=== PATIENT | male | born 1985 | race Caucasian/White ===

== ENCOUNTER 2019-02-14 14:42 | Emergency (ER) | payer MEDICARE, OTHER ==
[~2019-02-14] VITALS: Ht 195.6 cm; Wt 65.8 kg
== END 2019-02-14 15:55 | disposition left against medical advice (07) ==
LOC: ER 14:42
DX: Z53.21 Procedure and treatment not carried out due to patient leaving prior to being seen by health care provider (principal)
CPT/HCPCS: 99282

== ENCOUNTER 2019-02-17 15:26 | Emergency (ER) | payer MEDICARE, OTHER ==
[~2019-02-17] VITALS: Ht 195.6 cm; Wt 65.8 kg
[2019-02-17] MEDS ORDERED: Sudogest60 MG PO (17:32)
[2019-02-17] MEDS ORDERED: Cefdinir300 MG PO (17:32)
== END 2019-02-17 17:41 | disposition home or self-care (01) ==
LOC: ER 15:26
DX: H66.91 Otitis media, unspecified, right ear (principal); R09.81 Nasal congestion; Z88.0 Allergy status to penicillin; Z79.899 Other long term (current) drug therapy; F17.210 Nicotine dependence, cigarettes, uncomplicated
CPT/HCPCS: 99283